=== PATIENT | male | born 1955 | race Caucasian/White ===

== ENCOUNTER 2016-11-13 10:02 | Outpatient (CLI) | payer SELFPAY ==
[2016-06-22 17:04] VITALS: BP 183/127
== END 2016-11-13 10:03 ==
LOC: CARD 10:02
PROVIDERS: ATTEND Internal Medicine Cardiovascular Disease
DX: I42.9 Cardiomyopathy, unspecified (principal); R06.02 Shortness of breath; E11.22 Type 2 diabetes mellitus with diabetic chronic kidney disease; I12.9 Hypertensive chronic kidney disease with stage 1 through stage 4 chronic kidney disease, or unspecified chronic kidney disease; N18.9 Chronic kidney disease, unspecified
CPT/HCPCS: 99214

== ENCOUNTER 2017-02-23 03:21 | Emergency (ER) | payer SELFPAY ==
[2017-02-23 04:00] LABS: BASOPHILS % 0.6 (0.0-1.5); EOSINOPHILS % 1.7 % (0.0-6.8); MEAN CORPUSCULAR HEMOGLOBIN 25.1 pg (28.0-34.0); MEAN CORPUSCULAR VOLUME 81.2 fl (80.0-100.0); MONOCYTES % 5.6 % (0.0-11.0); NEUTROPHILS # 3.5 # k/uL (1.4-7.7)
[2017-02-23 04:15] LABS: eGFR (African) > 60; eGFR (Non-African) 50
--- NOTE | 2017-02-23 04:55 | ED Physician Documentation ---
General Adult - HISTORIAN Historian: patient - HPI Stated Complaint: WOUND Chief Complaint: General Adult Onset: hours Timing: worse Further Comments: yes (62 year old male patient presents with bleeding from skin on left lower extremity. Patient states he dropped a book and it hit his leg. States he cannot get the leg to stop bleeding. Patient reports being "discharged" from wound care a few weeks ago. On coumadin therapy therapy for DVT in left leg. Under the care of Dr Crowe in [place].) - ROS CONST: recent illness (wound care to left lower leg) EYES/ENT: none CVS/RESP: none GI/: none MS/SKIN/LYMPH: leg swelling (left leg "it's been that way"), ankle swelling ( left leg "it's been that way") - PAST HX Past History: CHF, hypertension, other (wound left lower leg, HTN, HLD, DVT left leg) Other History: diabetes Type 2 Allergies/Adverse Reactions: Allergies Allergy/AdvReac Type Severity Reaction Status Date / Time Penicillins Allergy Unknown Verified 02/23/17 04:04 Home Medications: Ambulatory Orders Medication Instructions Recorded Warfarin Sodium [Coumadin] 8 mg PO D 02/23/17 - SOCIAL HX Smoking History: non-smoker - FAMILY HX Family History: No - VITAL SIGNS Vital Signs: Vital Signs Temp Pulse Resp BP Pulse Ox 98.7 F 68 20 168/98 98 02/23/17 03:36 02/23/17 03:36 02/23/17 03:36 02/23/17 03:36 02/23/17 03:36 - REVIEWED ASSESSMENTS Nursing Assessment Reviewed: Yes Vitals Reviewed: Yes Progress - Progress Progress: Pressure dressing applied by nursing on arrival. 0430 INR 2.1, bleeding stopped. Wound examined. Irregular flap avulsion to left anterior lower leg leaving 2 x 3 cm wound, stage 2. Will need referral back to wound care. 2 open, healing areas noted on leg anterior leg with animal hair in wound. Bottom of foot with dried blood and animal hair. 0450 Legs, feet and wounds cleaned extensively by nursing. Optifoam dressing to skin tear, kerlix, and la wrap to left lower leg. ED Results Lab/Radiology - Lab Results Lab Results: Lab Results 02/23/17 02/23/17 02/23/17 03:53 03:53 03:53 WBC 5.90 K/ul K/ul (4.00-12.00) RBC 4.84 M/ul M/ul (3.90-5.20) Hgb 12.2 g/dL g/dL (12.0-18.0) Hct 39.3 % % (37.0-53.0) MCV 81.2 fl fl (80.0-100.0) MCH 25.1 pg L pg (28.0-34.0) MCHC 31.0 g/dL g/dL (30.0-36.0) RDW 15.7 % H % (11.3-14.3) Plt Count 172 K/mm3 K/mm3 (130-400) Neut % (Auto) 58.3 % % (39.0-79.0) Lymph % (Auto) 31.6 % % (16.0-50.0) [place] % (Auto) 5.6 % % (0.0-11.0) Eos % (Auto) 1.7 % % (0.0-6.8) Baso % (Auto) 0.6 (0.0-1.5) Neut # 3.5 # k/uL # k/uL (1.4-7.7) Lymph # 1.9 # k/uL # k/uL (0.6-4.0) [place] # 0.3 # k/uL # k/uL (0.0-0.9) Eos # 0.1 # k/uL # k/uL (0.0-0.6) Baso # 0.0 # k/uL # k/uL (0.0-0.5) Reactive Lymphs % 2.2 % % (0.0-5.0) Reactive Lymphs # 0.1 # k/uL # k/uL (0.0-0.8) PT 22.9 Seconds H Seconds (9.7-11.5) INR 2.1 H (0.9-1.1) Sodium 136 mmol/L mmol/L (136-145) Potassium 3.5 mmol/L mmol/L (3.5-5.0) Chloride 101 mmol/L mmol/L (98-110) Carbon Dioxide 22 mmol/L mmol/L (20-32) BUN 36 mg/dL H mg/dL (10-26) Creatinine 1.5 mg/dL mg/dL (0.4-1.5) Estimated Creat Clear 65 Est GFR ( Amer) > 60 (60 - ) Est GFR (Non-Af Amer) 50 L (60 - ) Glucose 207 mg/dL H mg/dL (70-99) Calcium 9.1 mg/dL mg/dL (8.5-10.5) Total Bilirubin 1.5 mg/dL H mg/dL (0.2-1.2) AST 22 U/L U/L (0-41) ALT 16 U/L U/L (0-45) Alkaline Phosphatase 59 U/L U/L (46-116) Total Protein 7.3 g/dL g/dL (6.0-8.5) Albumin 3.9 g/dL g/dL (3.0-5.5) - Orders Orders: ED Orders Category Date Time Status CBC/PLATELET/DIFF Routine Lab 02/23/17 03:53 Completed CMP Routine Lab 02/23/17 03:53 Completed PTINR [PT-INR] Routine Lab 02/23/17 03:53 Completed General Adult Physical Exam - PHYSICAL EXAM GENERAL APPEARANCE: moderate distress EENT: eye inspection normal, ADAM RESPIRATORY: no resp distress, chest non-tender, breath sounds normal CVS: reg rate & rhythm, heart sounds normal, equal pulses, no murmur, no gallop , PMI nml, no JVD, no friction rub, 24 ABDOMEN: soft, no organomegaly, normal bowel sounds, no abdominal bruit, no distension SKIN: warm/dry, normal color, other (left leg with 2-3 + edema from knee distally; PT palpable 1+, DP dopplered. Erythema and venous stasis noted. ) EXTREMITIES: non-tender, normal range of motion, no evidence of injury, edema (3 + left lower leg) NEURO: oriented X3, CN's nml as tested, motor nml, sensation nml, mood/affect nml Discharge Clincal Impression: Infected skin tear, Edema of left lower extremity, Cellulitis of left leg, Poor personal hygiene Referrals: Herminio Crowe MD [Primary Care Provider] - 2 Days Additional Instructions: Clean wound BID with chlorhexidine, cover with optifoam and wrap with kerlix. Continue this until seen by wound care. Keep lower legs wrapped with la wraps to reduce swelling. Keep lower legs elevated at all times supervisor clam bed your antibiotic and start it today. Call your primary care doctor today for a referral back to wound care as soon as possible. Home Medications: Ambulatory Orders Warfarin Sodium [Coumadin] 8 mg PO D 02/23/17 Condition: Fair Disposition: 01 HOME, SELF-CARE Decision to Admit: NO Decision Time: 04:51
[2017-02-23 04:57] VITALS: BP 155/77
== END 2017-02-23 05:06 | disposition home or self-care (01) ==
LOC: ED 03:21
DX: L03.116 Cellulitis of left lower limb (principal); R46.0 Very low level of personal hygiene
CPT/HCPCS: 80053; 85025; 85610; 99283; 99284

== ENCOUNTER 2017-03-24 03:44 | Emergency (ER) | payer SELFPAY ==
[2017-03-24] MEDS ORDERED: OXYMETAZOLINE HCL 0.05% NASAL SPRAY NS ONE ×2 (03:59)
[2017-03-24] MEDS ORDERED: CloNIDine HCL 0.1 MG TABLET PO ONE ×2 (04:12→04:47)
[2017-03-24 04:42] LABS: BASOPHILS % 0.9 (0.0-1.5); EOSINOPHILS % 2.4 % (0.0-6.8); MEAN CORPUSCULAR HEMOGLOBIN 24.1 pg (28.0-34.0); NEUTROPHILS # 4.3 # k/uL (1.4-7.7)
[2017-03-24 04:52] LABS: eGFR (African) > 60; eGFR (Non-African) > 60
[2017-03-24] MEDS ORDERED: SODIUM CHLORIDE 0.9% IV ONE (05:46)
[2017-03-24] MEDS ORDERED: LABETALOL HCL 100MG/20ML VIAL ONE ×2 (05:46→07:25)
[2017-03-24] MEDS ORDERED: LABETALOL HCL IV ONE (05:46)
[2017-03-24 05:57] LABS: APPEARANCE,URINE CLEAR (CLEAR); COLOR,URINE YELLOW (YELLOW)
[2017-03-24] MEDS ORDERED: 0.9 % SODIUM CHLORIDE 250 ML IV ONE (05:57)
[2017-03-24 05:58] LABS: OCCULT BLOOD,URINE 1+ (NEGATIVE); UROBILINOGEN URINE 0.2 Eu (0.2-1.0)
--- NOTE | 2017-03-24 07:03 | ED Physician Documentation ---
General Adult - HISTORIAN Historian: patient - HPI Stated Complaint: nose bleed Chief Complaint: General Adult Additional Information: Nose bleed began last evening. On coumadin for brown recluse spider bite. Last nose bleed a year ago. - ROS CONST: no problems - PAST HX Past History: CHF, hypertension, other ("brown recluse spider bite'" other records indicate DVT) - SOCIAL HX Smoking History: non-smoker - FAMILY HX Family History: No - VITAL SIGNS Vital Signs: Vital Signs Temp Pulse Resp BP Pulse Ox 98 H 20 216/144 96 03/24/17 03:55 03/24/17 03:55 03/24/17 03:55 03/24/17 03:55 - REVIEWED ASSESSMENTS Nursing Assessment Reviewed: Yes Vitals Reviewed: Yes <HAMILTON MUSA - Last Filed: 03/24/17 06:56> - VITAL SIGNS Vital Signs: Vital Signs Temp Pulse Resp BP Pulse Ox 98 H 20 216/144 96 03/24/17 03:55 03/24/17 03:55 03/24/17 03:55 03/24/17 03:55 <Lucian Pugh - Last Filed: 03/24/17 08:36> - PAST HX Allergies/Adverse Reactions: Allergies Allergy/AdvReac Type Severity Reaction Status Date / Time Penicillins Allergy Unknown Verified 03/24/17 03:59 Home Medications: Ambulatory Orders Medication Instructions Recorded Cephalexin [Keflex] 500 mg PO QID #40 capsule 02/23/17 Warfarin Sodium [Coumadin] 8 mg PO D 02/23/17 Cephalexin [Keflex] 500 mg PO Q6H #40 capsule 03/24/17 Progress - Progress Progress: INR 2.34, Bleeding slowed after Afrin, nasal packing, BP reduced, with clonidine 0.1 mg x2, Labetalol 5 mg IV x1. 178/114. <HAMILTON MUSA - Last Filed: 03/24/17 06:56> - Results/Orders Results/Orders: He continues to bleed around the packing, his BP remains elev. we will give him another dose of labetalol after labetolol, he pressure has improved, but the bleeding cont around the packing Decision to transfer after learning that we have no more packing apparatus Spoke with [facility], they will check if transfer is indicated 0825 Dr Joe Arlene accepted transfer to [facility] [place] <LexyLucian - Last Filed: 03/24/17 08:36> ED Results Lab/Radiology - Orders Orders: ED Orders Category Date Time Status CBC/PLATELET/DIFF Routine Lab 03/24/17 Ordered CMP Routine Lab 03/24/17 Ordered PT-INR Routine Lab 03/24/17 Ordered UA W/MICRO IF INDICATED Routine Lab 03/24/17 03:59 Ordered CloNIDine HCL [Catapress] Med 03/24/17 04:12 Once 0.1 mg PO NOW ONE Oxymetazoline HCl [Afrin 0.05%] Med 03/24/17 03:59 Once 1 spray NS NOW ONE Oxymetazoline HCl [Afrin 0.05%] Med 03/24/17 03:59 Discontinued 30 spray NS .STK-MED ONE <HAMILTON MUSA - Last Filed: 03/24/17 06:56> - Lab Results Lab Results: Lab Results 03/24/17 03/24/17 03/24/17 05:00 04:29 04:29 WBC RBC Hgb Hct MCV MCH MCHC RDW Plt Count Neut % (Auto) Lymph % (Auto) [place] % (Auto) Eos % (Auto) Baso % (Auto) Neut # (Auto) Lymph # (Auto) [place] # (Auto) Eos # (Auto) Baso # (Auto) Reactive Lymphs % Reactive Lymphs # PT 24.8 Seconds H Seconds (9.4-11.6) INR 2.34 H (0.9-1.2) Sodium 141 mmol/L mmol/L (136-145) Potassium 3.9 mmol/L mmol/L (3.5-5.0) Chloride 105 mmol/L mmol/L (98-110) Carbon Dioxide 25 mmol/L mmol/L (20-32) BUN 35 mg/dL H mg/dL (10-26) Creatinine 1.1 mg/dL mg/dL (0.4-1.5) Estimated Creat Clear 71 Est GFR ( Amer) > 60 (60 - ) Est GFR (Non-Af Amer) > 60 (60 - ) Glucose 191 mg/dL H mg/dL (70-99) Calcium 9.5 mg/dL mg/dL (8.5-10.5) Total Bilirubin 1.4 mg/dL H mg/dL (0.2-1.2) AST 25 U/L U/L (0-41) ALT 13 U/L U/L (0-45) Alkaline Phosphatase 59 U/L U/L (46-116) Total Protein 7.9 g/dL g/dL (6.0-8.5) Albumin 4.5 g/dL g/dL (3.0-5.5) Urine Color Yellow (YELLOW) Urine Appearance Clear (CLEAR) Urine pH 6.0 (5.0 - 8.0) Ur Specific [place] 1.020 (1.010-1.030) Urine Protein 2+ mg/dL H mg/dL (NEGATIVE) Urine Ketones Negative mg/dL mg/dL (NEGATIVE) Urine Occult Blood 1+ H (NEGATIVE) Urine Nitrite Negative (NEGATIVE) Urine Bilirubin Negative (NEGATIVE) Urine Urobilinogen 0.2 Eu Eu (0.2-1.0) Ur Leukocyte Esterase Negative (NEGATIVE) Urine Glucose Negative mg/dL mg/dL (NEGATIVE) 03/24/17 04:29 WBC 6.50 K/ul K/ul (4.00-12.00) RBC 5.30 M/ul H M/ul (3.90-5.20) Hgb 12.8 g/dL g/dL (12.0-18.0) Hct 41.3 % % (37.0-53.0) MCV 78.0 fl L fl (80.0-100.0) MCH 24.1 pg L pg (28.0-34.0) MCHC 30.9 g/dL g/dL (30.0-36.0) RDW 16.3 % H % (11.3-14.3) Plt Count 217 K/mm3 K/mm3 (130-400) Neut % (Auto) 66.9 % % (39.0-79.0) Lymph % (Auto) 23.1 % % (16.0-50.0) [place] % (Auto) 5.0 % % (0.0-11.0) Eos % (Auto) 2.4 % % (0.0-6.8) Baso % (Auto) 0.9 (0.0-1.5) Neut # (Auto) 4.3 # k/uL # k/uL (1.4-7.7) Lymph # (Auto) 1.5 # k/uL # k/uL (0.6-4.0) [place] # (Auto) 0.3 # k/uL # k/uL (0.0-0.9) Eos # (Auto) 0.2 # k/uL # k/uL (0.0-0.6) Baso # (Auto) 0.0 # k/uL # k/uL (0.0-0.5) Reactive Lymphs % 1.8 % % (0.0-5.0) Reactive Lymphs # 0.1 # k/uL # k/uL (0.0-0.8) PT INR Sodium Potassium Chloride Carbon Dioxide BUN Creatinine Estimated Creat Clear Est GFR ( Amer) Est GFR (Non-Af Amer) Glucose Calcium Total Bilirubin AST ALT Alkaline Phosphatase Total Protein Albumin Urine Color Urine Appearance Urine pH Ur Specific [place] Urine Protein Urine Ketones Urine Occult Blood Urine Nitrite Urine Bilirubin Urine Urobilinogen Ur Leukocyte Esterase Urine Glucose - Orders Orders: ED Orders Category Date Time Status CBC/PLATELET/DIFF Routine Lab 03/24/17 04:29 Completed CMP Routine Lab 03/24/17 04:29 Completed PT-INR Routine Lab 03/24/17 04:29 Completed UA MACRO DIP ONLY Routine Lab 03/24/17 05:00 Completed 0.9 % Sodium Chloride [Sodium Chloride] 250 ml Med 03/24/17 05:57 Discontinued IV .STK-MED CloNIDine HCL [Catapress] Med 03/24/17 04:12 Discontinued 0.1 mg PO NOW ONE CloNIDine HCL [Catapress] Med 03/24/17 04:47 Discontinued 0.1 mg PO NOW ONE Labetalol HCl [Trandate] Med 03/24/17 05:46 Discontinued 100 mg .ROUTE .STK-MED ONE Labetalol HCl [Trandate] Med 03/24/17 07:25 Discontinued 100 mg .ROUTE .STK-MED ONE Labetalol HCl [Trandate] Med 03/24/17 07:10 Discontinued 40 mg IVP NOW STA Labetalol HCl [Trandate] 5 mg Med 03/24/17 05:46 Discontinued 0.9 % Sodium Chloride [Sodium Chloride] 250 ml IV NOW Oxymetazoline HCl [Afrin 0.05%] Med 03/24/17 03:59 Discontinued 1 spray NS NOW ONE Oxymetazoline HCl [Afrin 0.05%] Med 03/24/17 03:59 Discontinued 30 spray NS .STK-MED ONE <Lucian Pugh - Last Filed: 03/24/17 08:36> General Adult Physical Exam - PHYSICAL EXAM GENERAL APPEARANCE: moderate distress EENT: eye inspection normal, other (bleeding from right nostril) NECK: normal inspection, supple RESPIRATORY: no resp distress, breath sounds normal CVS: reg rate & rhythm, heart sounds normal (with 1-2/6 [place]) ABDOMEN: soft, normal bowel sounds BACK: normal inspection SKIN: warm/dry, normal color EXTREMITIES: normal range of motion (gait), other (compressio nstocking eft lower leg. [place] chronic sl\\kin changes lower right leg) NEURO: CN's nml as tested, motor nml, sensation nml, cognition normal <HAMILTON MUSA - Last Filed: 03/24/17 06:56> Discharge Decision to Admit: NO Decision Time: 06:55 <HAMILTON MUSA - Last Filed: 03/24/17 06:56> Date of Decison to Admit: 03/24/17 Decision Time: 08:35 <Lucian Pugh - Last Filed: 03/24/17 08:36> Clincal Impression: Nosebleed Prescriptions: Cephalexin [Keflex] 500 mg PO Q6H #40 capsule Referrals: Herminio Crowe MD [Primary Care Provider] - 2 Days Additional Instructions: Do not take your coumadin this evening. See Dr. crowe in 3-5 days. Take all the antibiotics as prescribed until they are gone. Do not blow your nose, eat or drink hot foods or liquids, or strain in the bathroom, as these activities can make your nose bleed more. Home Medications: Ambulatory Orders Cephalexin [Keflex] 500 mg PO QID #40 capsule 02/23/17 Warfarin Sodium [Coumadin] 8 mg PO D 02/23/17 Cephalexin [Keflex] 500 mg PO Q6H #40 capsule 03/24/17 Condition: Fair Disposition: 02 XFER [facility]
[2017-03-24] MEDS ORDERED: LABETALOL HCL 100MG/20ML VIAL IVP STA (07:10)
[2017-03-24 09:02] VITALS: BP 137/81
== END 2017-03-24 08:50 | disposition short-term general hospital (02) ==
LOC: ED 03:44
DX: R04.0 Epistaxis (principal)
CPT/HCPCS: 80053; 81002; 85025; 85610; J3490; J7050; 30901; 96361; 96365; 96375; 99284; S1016

== ENCOUNTER 2017-11-19 12:08 | Emergency (ER) | payer SELFPAY ==
--- NOTE | 2017-11-19 12:30 | ED Physician Documentation ---
Lower Extremity Problem - HISTORIAN Historian: patient - HPI Chief Complaint: Lower Extremity Problem Additional Information: Chronic open weeping wound on Left low leg, seeing wound care in [place], but has missed an appt, it has old dressing on it with malodorous drainage, the dressing looks stuck in the wound, he has significant bilat LE edema, with open draining serous fluid as well from his right leg. There is erythema to the knee , with open draining wounds from mid mccoy distal. He denies new pain, no fever, not currently on antibiotics, he is IDDM and has CHF Location of Injury: R foot, R ankle, L foot, L ankle, L leg Onset: other (chronic, started over a year ago.) Timing: still present Duration: constant Recent Injury: No Severity: severe Quality: swelling Exacerbated By: nothing Relieved By: nothing Associated Symptoms: denies: chest pain, shortness of breath - ROS CONST: no problems. denies: fever MS/SKIN/LYMPH: leg swelling, ankle swelling CVS/RESP: none. denies: shortness of breath GI/: none EYES/ENT: none NERUO/PSYCH: difficulty walking. denies: headache - PAST HX Past History: none PE Risk Factors: leg swelling Other History: CHF, diabetes Type 1 (sh) Surgeries/Procedures: other (shoulder) Allergies/Adverse Reactions: Allergies Allergy/AdvReac Type Severity Reaction Status Date / Time Penicillins Allergy Unknown Verified 11/19/17 12:34 Home Medications: Ambulatory Orders Medication Instructions Recorded Cephalexin [Keflex] 500 mg PO QID #40 capsule 02/23/17 Warfarin Sodium [Coumadin] 8 mg PO D 02/23/17 Cephalexin [Keflex] 500 mg PO Q6H #40 capsule 03/24/17 - SOCIAL HX Smoking History: non-smoker Alcohol Use: none Drug Use: none - FAMILY HX Family History: no significant history - VITAL SIGNS Vital Signs: Vital Signs Temp Pulse Resp BP Pulse Ox 99.0 F 100 H 18 172/117 99 11/19/17 12:08 11/19/17 12:08 11/19/17 12:08 11/19/17 12:08 11/19/17 12:08 - REVIEWED ASSESSMENTS Nursing Assessment Reviewed: Yes Vitals Reviewed: Yes Progress - Progress Progress: BP down from 166/117 to 125/89 after 20mg labetolol. 1315 Transfer for infceted leg wound accepted Dr Tello [facility] at 1300 ED Results Lab/Radiology - Orders Orders: ED Orders Category Date Time Status Place IV Lock 1T Care 11/19/17 13:14 Ordered BLOOD CULTURE Stat Lab 11/19/17 Ordered CBC/PLATELET/DIFF Routine Lab 11/19/17 Ordered CMP Routine Lab 11/19/17 Ordered Labetalol HCl [Trandate] Med 11/19/17 12:50 Discontinued 100 mg .ROUTE .STK-MED ONE Labetalol HCl [Trandate] 20 mg Med 11/19/17 13:14 Ordered 0.9 % Sodium Chloride [Sodium Chloride] 250 ml IV NOW Lower Extremity Problem - EXAM General Appearance: no distress Ankle: bilateral: deformity (significant edema and venous stasis dermatitis), swelling (with open draining wounds) Foot: bilateral foot: swelling (as above) Neuro/Tendon: normal sensation, normal motor functions, no evidence tendon injury EENT: ENT inspection normal RESPIRATORY: no resp distress JOINT: joints nml NEURO/PSYCH: oriented X3 SKIN: No: warm/dry, normal color BACK: normal inspection Discharge Clincal Impression: Infected skin tear, Edema of left lower extremity, Cellulitis of left leg, Poor personal hygiene, IDDM (insulin dependent diabetes mellitus) Leg wound, left Qualifiers: Encounter type: sequela Qualified Code(s): S81.802S - Unspecified open wound, left lower leg, sequela Hypertension Qualifiers: Hypertension type: unspecified Qualified Code(s): I10 - Essential (primary) hypertension Obesity Qualifiers: Obesity type: unspecified obesity type Obesity classification: unspecified obesity classification Serious obesity comorbidity presence: with serious comorbidity Qualified Code(s): E66.9 - Obesity, unspecified Referrals: Herminio Crowe MD [Primary Care Provider] - 2 Days Condition: Fair Disposition: 02 XFER [facility]HT-[facility] HOSP Decision to Admit: NO Date of Decison to Admit: 11/19/17 Decision Time: 13:17
[2017-11-19] MEDS ORDERED: LABETALOL HCL 100MG/20ML VIAL ONE (12:50)
[2017-11-19] MEDS: SODIUM CHLORIDE 0.9% IV ONE (13:16)
[2017-11-19] MEDS: LABETALOL HCL IV ONE (13:16)
[2017-11-19 13:32] LABS: eGFR (African) > 60; eGFR (Non-African) 59
[2017-11-19 14:05] VITALS: BP 108/75
[2017-11-19 21:11] LABS: BASO % 0.4 % (0.0-1.5); EOS % 0.8 % (0.0-6.8); LYMPH ABS # 1.22 thou/uL (0.60-4.00); MCH. 22.5 pg (28.0-34.0); MCV 74.6 fL (80.0-100.0); MONOCYTE % 7.9 % (0.0-11.0); MONOCYTE ABS # 0.56 thou/uL (0.00-0.90); PLATELET COUNT 232 thou/uL (130-400)
== END 2017-11-19 13:50 | disposition short-term general hospital (02) ==
LOC: ED 12:08
DX: S81.802S Unspecified open wound, left lower leg, sequela (principal); E10.69 Type 1 diabetes mellitus with other specified complication; E66.9 Obesity, unspecified; I10 Essential (primary) hypertension
CPT/HCPCS: 80053; 85025; 87040; J3490; J7050; 96374; 99283; 99284; S1016